=== PATIENT | male | born 1945 | race Caucasian/White ===

== ENCOUNTER → 2020-02-09 | Outpatient (CLI) | payer OTHER | END | disposition home or self-care (01) | LOC: RAD 07:00 → EDSTATUS 07:15 | PROVIDERS: ATTEND Family Medicine | DX: M51.16 Intervertebral disc disorders with radiculopathy, lumbar region (principal); M48.061 Spinal stenosis, lumbar region without neurogenic claudication; M25.78 Osteophyte, vertebrae; M47.22 Other spondylosis with radiculopathy, cervical region; M48.02 Spinal stenosis, cervical region | CPT/HCPCS: 72141; 72148 ==